=== PATIENT | female | born 1990 | race Caucasian/White ===

== ENCOUNTER 2019-02-17 07:27 | Emergency (ER) | payer MEDICAID, OTHER ==
--- NOTE | 2019-02-17 07:34 | ED Physician Documentation ---
PD HPI FEMALE - Stated complaint Stated Complaint: POST - Chief complaint Chief Complaint: Abd Pain - History obtained from History obtained from: Patient - History of Present Illness Timing - onset: How many hours ago (1) Timing - details: Abrupt onset (The patient is 1 hour at 41 weeks gestational age. She had a planned home delivery with the housing officer present and had several hours of contractions and then 20-minute second stage and then delivered with report of a small tear by the housing officer. The she delivered was having some respiratory distress and so mom and baby came up by ambulance. The housing officer said she would have sutured the patient if there is still at home or at the birthing center. The patient states she is having some intermittent cramping. She denies much bleeding.) Associated symptoms: Pelvic pain (c/w post cramps), Vaginal pain, Vaginal bleeding (mild). No: Fever, Dysuria Recently seen: Clinic (home delivery 1 hour [employer].) Review of Systems Constitutional: denies: Fever Cardiac: denies: Chest pain / pressure Respiratory: denies: Dyspnea GI: denies: Abdominal Pain : reports: Vaginal bleeding PD PAST MEDICAL HISTORY - Past Medical History Past Medical History: No - Present Medications Home Medications: Ambulatory Orders Medication Instructions Recorded Confirmed No Known Home Medications 02/17/19 02/17/19 - Allergies Allergies/Adverse Reactions: Allergies Allergy/AdvReac Type Severity Reaction Status Date / Time No Known Drug Allergies Allergy Verified 02/17/19 07:32 - Social History Does the pt smoke?: No Smoking Status: Never smoker PD ED PE NORMAL - Vitals Vital signs reviewed: Yes - General General: Alert and oriented X 3, No acute distress, Well developed/nourished - HEENT HEENT: Pharynx benign - Neck Neck: Supple, no meningeal sign, No adenopathy - Cardiac Cardiac: RRR, No murmur - Respiratory Respiratory: Clear bilaterally - Abdomen Abdomen: Soft, Non distended, Other (minimal lower abd tenderness. The fundus feels firm.) - Female Female : Deferred - Derm Derm: Normal color, Warm and dry - Neuro Neuro: Alert and oriented X 3, No motor deficit, Normal speech Results - Vitals Vitals: Vital Signs - 24 hr 02/17/19 02/17/19 07:30 11:36 Temperature 36.5 C 37.0 C Heart Rate 103 H 115 H Respiratory 18 16 Rate Blood Pressure 129/83 H 138/84 H O2 Saturation 100 100 Oxygen O2 Source Room air - Labs Labs: Laboratory Tests 02/17/19 02/17/19 07:54 07:54 WBC 23.5 H RBC 3.92 L Hgb 12.3 Hct 36.8 L MCV 93.9 MCH 31.4 H MCHC 33.4 RDW 13.8 Plt Count 204 MPV 9.8 Neut # (Auto) 20.9 H Lymph # (Auto) 1.2 L Divide # (Auto) 1.0 Eos # (Auto) 0.0 Baso # (Auto) 0.0 Absolute Nucleated RBC 0.00 Nucleated RBC % 0.0 Manual Slide Review Indicated WBC Morphology NORMAL APPEARANCE Platelet Estimate NORMAL (130-450,000) Platelet Morphology NORMAL APPEARANCE RBC Morph Micro Appear NORMAL APPEARANCE Sodium 136 Potassium 3.6 Chloride 102 Carbon Dioxide 22 Anion Gap 12.0 BUN 10 Creatinine 0.5 Estimated GFR (MDRD) 146 Glucose 146 H Calcium 9.0 Total Bilirubin 0.7 AST 32 ALT 23 Alkaline Phosphatase 125 H Total Protein 6.2 L Albumin 3.1 L Globulin 3.1 Albumin/Globulin Ratio 1.0 Lipase 27 PD MEDICAL DECISION MAKING - ED course Complexity details: d/w patient, d/w farm service consultant (Will consult [employer] to evaluate for suturing of a vaginal tear and other care. The patient otherwise appears well at this point.) Departure - Departure Disposition: 01 Home, Self Care Clinical Impression: state, Vaginal tear resulting from childbirth Condition: Stable Record reviewed to determine appropriate education?: Yes Follow-Up: Maurizio Mix, [Provider Admit Priv/Credential] - Lucina Lai LMW [Physician No Access] - Comments: Stay well-hydrated. Care of the vaginal tear and general care per your housing officer. Follow-up with gynecology if needed. Tylenol ibuprofen as needed for pains. Discharge Date/Time: 02/17/19 11:37
[2019-02-17] MEDS ORDERED: SODIUM CHLORIDE 0.9% 1,000 ML IV ONE (07:44)
[2019-02-17 08:05] LABS: BASOPHILS % (AUTO) 0.1 %; EOSINOPHILS % (AUTO) 0.1 %; HGB - HEMOGLOBIN 12.3 g/dL (12.0-16.0); LYMPHOCYTES # (AUTO) 1.2 10^3/uL (1.5-3.5); LYMPHOCYTES % (AUTO) 5.2 %; MEAN CORPUSCULAR HEMOGLOBIN 31.4 pg (27.0-31.0); MEAN CORPUSCULAR HGB CONC 33.4 g/dL (32.0-36.0); MEAN CORPUSCULAR VOLUME 93.9 fL (81.0-99.0); MEAN PLATELET VOLUME 9.8 fL (7.9-10.8); MONOCYTES % (AUTO) 4.2 %; NEUTROPHILS # (AUTO) 20.9 10^3/uL (1.5-6.6); NEUTROPHILS % (AUTO) 89.2 %; PLT - PLATELET COUNT 204 10^3/uL (130-450); RED BLOOD COUNT 3.92 10^6/uL (4.20-5.40); RED CELL DISTRIBUTION WIDTH 13.8 % (12.0-15.0); WHITE BLOOD COUNT 23.5 x10^3/uL (4.8-10.8)
[2019-02-17 08:20] LABS: ALBUMIN 3.1 g/dL (3.2-5.5); BILIRUBIN,TOTAL 0.7 mg/dL (0.2-1.0); CREATININE 0.5 mg/dL (0.4-1.0); TOTAL PROTEIN 6.2 g/dL (6.7-8.2)
[2019-02-17 08:30] LABS: PLATELET ESTIMATE, MANUAL NORMAL (130-450,000) (NORMAL); PLATELET MORPHOLOGY NORMAL APPEARANCE (NORMAL); RBC MORPHOLOGY (MULTIPLE) NORMAL APPEARANCE (NORMAL)
[2019-02-17] MEDS ORDERED: LIDOCAINE 2%-EPI 1:100000 20 ML MDV SUBQ STA (08:44)
--- NOTE | 2019-02-17 10:15 | CONSULTATION NOTE ---
DATE OF SERVICE: 02/17/2019 Physician: Maurizio Mix DO CHIEF COMPLAINT: First-degree perineal laceration. HISTORY OF CHIEF COMPLAINT: Patient is a well-developed, well nourished 28-year-old 2, para 2-0-0-2, female. Approximately 1 hour ago, she had a planned home delivery with a driver sales. She had a normal vaginal delivery and the driver sales did see a small first-degree perineal laceration. The placenta was stated to have been delivered intact; however, at that point, the was having respiratory distress, so the mom and the baby were transported by ambulance to the emergency room. The driver sales stated that she would have sutured the patient if she was still at home or at the birthing center. Patient states her course was unremarkable. Other than that, the delivery was entirely unremarkable. ALLERGIES: NO KNOWN DRUG ALLERGIES. MEDICATIONS: None. PAST MEDICAL HISTORY: Entirely unremarkable. FAMILY HISTORY: Noncontributory. SOCIAL STRESS HISTORY: Patient denies any history of tobacco use, street drugs or alcohol. REVIEW OF SYSTEMS: The entire review of systems was otherwise unremarkable. PHYSICAL EXAMINATION VITAL SIGNS: Revealed temperature is 36.5, heart rate 103, respirations 18, blood pressure is 129/83. She has 100% oxygenation on room air. GENERAL: This is a well-developed, well-nourished, 28-year-old white female in no acute distress. ABDOMEN: Soft, pliable and nontender. The uterus was firm and nontender, 2 fingerbreadths below the umbilicus. PELVIC: There is a small amount of lochia, which is quite appropriate. Examination of the vulva does reveal a small first-degree perineal laceration at the introitus. There is evidence of previous lacerations from her first delivery. Inspection of the vaginal vault found the rest of the vagina to be intact. The cervix was intact. No other lacerations on the vulva were appreciated. External genitalia revealed normal developmental patterns. There is normal female escutcheon. [place], and [place]'s glands were unremarkable. PROCEDURE: At this point in time, patient was prepped and draped in the usual fashion. After an appropriate timeout took place. The area of laceration was visualized and anesthetized with 2% lidocaine with epinephrine. 2-0 chromic suture was then used to repair the laceration in the usual fashion and hemostasis followed. Patient tolerated the procedure well. ASSESSMENT AND PLAN 1. Immediate delivery at 41 weeks' gestation. 2. First-degree perineal laceration. PROCEDURES: Repair of 1st degree perineal laceration. PLAN: Patient will be allowed to be discharged to the care of the driver sales at this point in time. As long as she does well, she will follow up with a driver sales. She knows to call immediately if she has any increased bleeding or signs of infection at the laceration site. TD: 02/17/2019 09:28 MTDJonelle
[2019-02-17 11:37] VITALS: BP 138/84
== END 2019-02-17 11:37 | disposition home or self-care (01) ==
LOC: ED 07:27
DX: O70.0 First degree perineal laceration during delivery (principal); Z3A.41 41 weeks gestation of pregnancy
CPT/HCPCS: 36415; 80053; 83690; 84295; 85025; 96360; 99282

== ENCOUNTER 2019-05-28 11:50 | Outpatient (CLI) | payer MEDICAID ==
--- NOTE | 2019-05-28 16:40 | Ultrasound Report ---
Reason: LT BREAST LUMP Procedure Date: 05/28/2019 Accession Number: [id number] / [id number] Procedure: US - Breast Unilateral Limited CPT Code: Final Report FULL RESULT: EXAM: Breast Unilateral Limited DATE: 05/28/2019 12:24 PM CLINICAL HISTORY: Palpable lump which per the patient has decreased in size since it was noticed 2 months ago. The patient is currently breast-feeding. COMPARISON: None. TECHNIQUE: Targeted ultrasound was performed of the left breast in the area of clinical concern in the retroareolar region. Color Doppler was employed as appropriate. FINDINGS: A wider than tall hypoechoic mass which concerns low level echoes demonstrates a imperceptibly thin wall and is well circumscribed with pronounced increased through transmission is most consistent with ductal ectasia in the setting of breast-feeding, probably benign. IMPRESSION: Probable benign findings RECOMMENDATION: 6 month follow-up ultrasound. BIRADS CATEGORY 3 RADIA
== END 2019-05-28 11:51 | disposition home or self-care (01) ==
LOC: DI 11:50
PROVIDERS: ATTEND Nurse Practitioner Family
DX: N63.20 Unspecified lump in the left breast, unspecified quadrant (principal)
CPT/HCPCS: 76642